=== PATIENT | male | born 1960 | race Native Hawaiian/Other Pacific Islander ===

== ENCOUNTER 2016-12-30 13:13 | Observation (INO) | payer BC ==
[~2016-12-30] VITALS: Ht 180.3 cm; Wt 84.5 kg
[2016-12-30] VITALS (10 sets, daily range): BP systolic 121–172; BP diastolic 61–101; TEMP 98.2–100; Ht 180.3 cm; Wt 84.5 kg
[2016-12-30 13:53] LABS: PLATELET COUNT 261 K/uL (142-355)
[2016-12-30 14:02] LABS: POTASSIUM 3.8 mmol/L (3.6-5.2); SODIUM 132 mmol/L (136-145)
--- NOTE | 2016-12-30 17:00 | NUR ---
PT TO ROOM 1103 ALERT AND ORIENTED. ASSESSMENT COMPLETE. MELINDA BROWN AT BS TO ASSESS PT. AT BS. PT C/O CHEST AND NECK PAIN. ORDERS FOR MEDS AND GIVEN ORDERED. IV TO L AC INTACT AND PATENT AND STARTED IV TO R FA AT THIS TIME. CALL LIGHT WITHIN REACH AND BED IN LOWEST POSITION.
--- NOTE | 2016-12-30 19:00 | NUR ---
Received pt resting in bed complaining of pain in his upper left shoulder. VSS per monitor. Resp even and non labored. Bed in low position. Call light within reach. Will continue to monitor.
--- NOTE | 2016-12-30 20:50 | NUR ---
Dr. Nuñez notified of Troponin level at this time. No new orders given.
--- NOTE | 2016-12-30 21:55 | NUR ---
Dr. Lazar in ER reviewed EKG at this time. No orders given.
[2016-12-31] VITALS: BP 96/57; TEMP 100.3
--- NOTE | 2016-12-31 00:43 | NUR ---
Pt resting in bed with eyes closed at this time.
--- NOTE | 2016-12-31 01:15 | NUR ---
Dr. Nuñez notified of pts lab results.
--- NOTE | 2016-12-31 01:30 | NUR ---
Dr. Nuñez here to see pt at this time.
--- NOTE | 2016-12-31 02:00 | NUR ---
[facility] [place].
--- NOTE | 2016-12-31 03:30 | NUR ---
Report given to Rhona Black RN at [facility] in [place].
--- NOTE | 2016-12-31 03:45 | NUR ---
EMS notified of transfer.
[2016-12-31 04:00] VITALS: BP 103/65; TEMP 98.6
--- NOTE | 2016-12-31 04:00 | NUR ---
Kieran with EMS called and said they were trying to find someone to transfer pt.
--- NOTE | 2016-12-31 06:00 | NUR ---
Pt left via ambulance at this time.
== END 2016-12-31 06:00 | disposition short-term general hospital (02) ==
LOC: ED 13:13 → MED/SURG 15:00
PROVIDERS: ADMIT Family Medicine
DX: R07.89 Other chest pain (principal); R11.2 Nausea with vomiting, unspecified; R06.09 Other forms of dyspnea; R91.8 Other nonspecific abnormal finding of lung field; J44.9 Chronic obstructive pulmonary disease, unspecified; I20.0 Unstable angina
CPT/HCPCS: 36415; 80053; 80307; 81000; 82550; 84484; 85027; 93005; 94760; 96372; 99220; 99284; G0378; G0479; J1200; J1644; J1650; J2270

== ENCOUNTER 2021-04-23 16:25 | Emergency (ER) | payer OTHER ==
[~2021-04-23] VITALS: Ht 180.3 cm; Wt 90.7 kg
[2021-04-23 16:25] VITALS: TEMP 98
[2021-04-23 17:27] LABS: PLATELET COUNT 156 K/uL (142-355)
[2021-04-23 17:42] LABS: PARTIAL THROMBOPLASTIN TIME 24.3 SECONDS (24.5-33.6); POTASSIUM 4.1 mmol/L (3.6-5.2)
[2021-04-23 18:20] VITALS: BP 154/85
== END 2021-04-23 18:33 | disposition home or self-care (01) ==
LOC: ED 16:36
PROVIDERS: Emergency Medicine
DX: U07.1 COVID-19 (principal)
CPT/HCPCS: 36415; 80053; 83880; 84484; 85027; 85379; 85610; 85730; 93005; 96365; 96375; 99284; J0696; J1100